=== PATIENT | female | born 1940 | race American Indian/Alaskan Native ===

== ENCOUNTER 2020-11-09 14:00 | Emergency (ER) | payer OTHER ==
--- OUTSIDE RECORDS SUMMARY | 2020-11-09 14:03 | XMS REPORT | Continuity of Care Document ---
:1940 Author Organization [facility] t Address [address] [place] [address] Care Team Providers Name Role Phone Asked, No Pcp Primary Care Physician Unavailable Wili AGUILERA Attending Clinician Therapist, Speech Attending Clinician Unavailable Radiology Attending Clinician Unavailable Jose MUNOZ Attending Clinician Unavailable Jeancarlos AGUILERA, A Attending Clinician Only, Test Attending Clinician Unavailable Doctor Unassigned, Name Attending Clinician Unavailable Pob, Lab Main Attending Clinician Unavailable Jeancarlos AGUILERA, A Admitting Clinician Payers Payer Name Policy Type Policy Effective Date Expiration Date Sour ce Number [facility] [id number] 2020 [facility] 00:00:00 [facility] -[facility] DUAL COMPLETE [id number] O Problems This patient has no known problems. Allergies, Adverse Reactions, Alerts This patient has no known allergies or adverse reactions. Social History Social Habit Start Date Stop Date Quantity Comments Source Tobacco use and 2020-05-18 2020-05-[address] [facility] exposure 00:00:00 00:00:00 Sex Assigned At [address] 1940 [facility] 00:00:00 00:00:00 Smoking Status Start Date Stop Date Source Never smoker [facility] Medications Ordered Filled Start Stop Current Ordering Indication Dosage Frequency Signature Comments Components Source Medication Medication Date Date Medication? Clinician (SIG) Name Name tyrese 2020- No [id number] 40U [facility] Katharine 07-[id number] (BOTOX) 18:30: 21:30 Hospita injection 00 :00 l 40 Units Lumigan Yes [facility] 0.01 % 2- st ophthalmic 00:00: Hospita drops 00 l atenoloL Yes [facility] (TENORMIN) 04-15 st 50 MG 00:00: Hospita tablet 00 l losartan Yes [facility] (COZAAR) 50 - st MG tablet 00:00: Hospita 00 l Procedures Procedure Date / Time Performed Performing Clinician [facility] e AUTOMATED VISUAL FIELD, 2020-05-18 21:13:07 [facility] EXTENDED - OD - RIGHT EYE AUTOMATED VISUAL FIELD, 2020-05-18 21:12:57 [facility] EXTENDED - OD - RIGHT EYE Plan of Care Planned Activity Planned Date Details Comments Source Future Scheduled Test COVID-19 VACCINE (1) [facility] [code = COVID-19 VACCINE (1)] Future Scheduled Test Hepatitis C screening [facility] (procedure) [code = 215524618] Future Scheduled Test SHINGLES VACCINES (#1) [facility] [code = SHINGLES VACCINES (#1)] Future Scheduled Test 65+ PNEUMOCOCCAL [facility] VACCINE (1 of 1 - PPSV23) [code = 65+ PNEUMOCOCCAL VACCINE (1 of 1 - PPSV23)] Future Scheduled Test INFLUENZA VACCINE [code [facility] = INFLUENZA VACCINE] Encounters Start End Encounter Admission Attending Care Care Encounter Source Date/Time Date/Time Type Type Clinicians Facility Department ID 2020-08-01 2020-08-01 Office Wili 1.2.840.1 [id number] [facility] 13:26:07 14:15:23 Visit [facility] [address]28.1.[address] 3.430.2.7 Hospit a .3.779871 l .8 2020-08-01 2020-08-01 Travel 1.2.840.1 1.2.503.256 [id number] [facility] 00:00:00 00:00:[address] 3.430.2.7 0.2.7.3.698 Ho spita .3.422463 084.8 l .8 2020-08-01 2020-08-01 Telephone Wili, 1.2.840.1 [id number] [facility] 00:00:00 00:00:[address] 3.430.2.7 Hospit a .3.250678 l .8 2020-08-01 2020-08-01 Outpatient WILI, [facility] [id number] [address] [place] 00:00:00 00:00:00 [facility] [address] 2020-07-20 2020-07-20 Telephone Wili, 1.2.840.1 [id number] [facility] 00:00:00 00:00:[address] 3.430.2.7 Hospit a .3.092918 l .8 2020-07-13 2020-07-13 Office Wili, 1.2.840.1 [id number] [facility] 12:30:39 13:25:56 Visit [facility] [address]7680.1.[address] 3.430.2.7 Hospit a .3.840323 l .8 2020-07-13 2020-07-13 Travel 1.2.840.1 1.2.558.590 [id number] [facility] 00:00:00 00:00:[address] 3.430.2.7 0.2.7.3.698 Ho spita .3.548695 084.8 l .8 2020-07-13 2020-07-13 Outpatient WILI, [facility] [id number] [address] [place] 00:00:00 00:00:00 [facility] [address] 2020-05-19 2020-05-19 Telephone Wili, 1.2.840.1 [id number] [facility] 00:00:00 00:00:[address] 3.430.2.7 Hospit a .3.309707 l .8 2020-05-18 2020-05-18 Office Wili, 1.2.840.1 [id number] [facility] 13:09:03 15:13:02 Visit [facility] [address]85.1.[address] 3.430.2.7 Hospit a .3.019368 l .8 2020-05-18 2020-05-18 Travel 1.2.840.1 1.2.495.220 [id number] [facility] 00:00:00 00:00:[address] 3.430.2.7 0.2.7.3.698 Ho spita .3.750773 084.8 l .8 2020-05-18 2020-05-18 Outpatient WILI [facility] [id number] [address] [place] 00:00:00 00:00:00 [facility] [address] 2020-03-30 2020-03-30 [facility] 1.2.840.114 [id number] 08:49:38 09:49:38 Visit Derek Yost 350.1.13.10 [place] 4.2.7.2.686 Professio [id number] [address] 2020-03-29 2020-03-29 [facility] Radiology [facility] 1.2.840.114 [id number] 13:00:00 23:59:00 Encounter Ritika 350.1.13.10 [place] 4.2.7.2.686 [place] [id number] [id number] 2020-03-10 2020-03-10 [facility] 1.2.840.114 [id number] 00:00:00 00:00:00 Marry Yost 350.1.13.10 [place] 4.2.7.2.686 Professio [id number] [address] 2020-02-24 2020-02-24 [facility] 1.2.743.080 1530 1918 11:00:00 14:00:00 Encounter Dennys Yost 350.1.13.10 [place] 4.2.7.2.686 Surgical [id number] [place] [address] 2020-02-23 2020-02-23 Laboratory Only, [facility] 1.2.840.114 7 [id number] 11:06:48 11:21:48 Only Test [place] 350.1.13.10 [place] 4.2.7.2.686 [place] [id number] 353 2020-02-23 2020-02-23 Orders Doctor JOANNE 1.2.840.114 [id number] 00:00:00 00:00:00 Only Unassigned, APOLINAR 350.1.13.10 [place] [address].2.7.2.686 [id number] 009 2020-02-03 2020-02-03 [facility] 1.2.230.383 [id number] 08:19:00 13:31:00 Encounter Dennys Yost 350.1.13.10 [place] 4.2.7.2.686 Surgical [id number] [place] [address] 2020-02-02 2020-02-02 Laboratory Only, [facility] 1.2.840.114 7 [id number] 11:00:39 11:15:39 Only Test [place] 350.1.13.10 [place] 4.2.7.2.686 [place] [id number] [facility] 2020-01-29 2020-01-29 Design Inserter Jann, [facility] 1.2.840.114 [id number] 15:22:04 15:37:04 Visit Lab Main [place] 350.1.13.10 [place] 4.2.7.2.686 Professio [id number] [address] 2020-01-29 2020-01-29 Orders Doctor JOANNE 1.2.840.114 [id number] 00:00:00 00:00:00 Only Unassigned, APOLINAR 350.1.13.10 [facility] 4.2.7.2.686 [id number] 009 2019-12-16 2019-12-16 [facility]phone [facility] 1.2.840.114 [id number] 00:00:00 00:00:00 Marry Yost 350.1.13.10 [place] 4.2.7.2.686 Professio [id number] [facility] 145 Building 2019-12-04 2019-12-04 Telephone UZMA Garcia.2.840.114 [id number] 00:00:00 00:00:00 Marry Yost 350.1.13.10 [place] 4.2.7.2.686 Professio [id number] [facility] 145 [facility] Results Test Description Test Time Test Comments Results Result Sour e Comments Automated Visual 2020-05-20 Threshold was [place] dist Field, Extended - 17:50:14 LVC. Strategy was Hospital OD DONALDO. Notes> 25 degree improvement in visual field OD w/lids taped Automated Visual 2020-05-20 Threshold was [place] dist Field, Extended - 17:50:04 LVC. Strategy was Hospital OD DONALDO. Notes> 25 degree improvement in visual field OD w/lids taped
--- NOTE | 2020-11-09 16:16 | RAD REPORT ---
EXAM DESCRIPTION: RAD - Chest Single View - 11/09/2020 3:16 pm CLINICAL HISTORY: COUGH COMPARISON: May 2012 TECHNIQUE: AP portable chest image was obtained 11/09/2020 3:16 pm . FINDINGS: Fibrotic lung pattern is present. Interstitial pattern is slightly more pronounced in the lateral mid left lung field and in the lateral right base. In the acute clinical setting this could b e a mild or early pneumonia. In the current clinical environment COVID-19 pneumonia cannot be exclude d and can be correlated with history testing. Asymmetric fibrosis is unlikely. No failure or volume overload. No suspicious yennifer finding. Heart and vasculature are normal. No measurable pleural effusion and no pneumothorax. No acute bony abnormality seen. No acute aortic findings suspected. IMPRESSION: Patchy lung parenchymal opacification superimposed on mild diffuse chronic lung disease. Minimal or early bilateral pneumonia is suspected. COVID-19 pneumonia etiology cannot be excluded.
--- NOTE | 2020-11-09 18:15 | EDPHYS ---
Physician Documentation [facility] Name: Philip Aceves Age: 80 yrs Sex: Female : 1940 Arrival Date: 11/09/2020 Time: 14:06 Bed Waiting Private MD: ED Physician Luis Saez HPI: 11/09 18:44 This 80 yrs old Other Female presents to ER via Ambulatory with complaints of Cough, kb Fever, Sore Throat. 18:44 The patient or guardian reports cough, flu symptoms. Onset: The symptoms/episode kb began/occurred 5 day(s) ago. Severity of symptoms: At their worst the symptoms were mild, moderate, in the emergency department the symptoms are unchanged. Modifying factors: The symptoms are alleviated by nothing, the symptoms are aggravated by nothing. Associated signs and symptoms: Pertinent positives: fever, Pertinent negatives: chest pain, diarrhea, ear ache, nausea, rhinorrhea, sore throat, vomiting. The patient has not experienced similar symptoms in the past. The patient has not recently seen a physician. Family reports pt has had cough, fever, chills, bodyaches and fatigue for 5 days. . Historical: - Allergies: 14:59 No Known Allergies; ss - PMHx: 14:59 Hypertensive disorder; ss - Immunization history:: Client reports having NOT received the Covid vaccine. - Social history:: Smoking status: Patient denies any tobacco usage or history of. ROS: 18:43 Abdomen/GI: Negative for abdominal pain, nausea, vomiting, diarrhea, and constipation. kb 18:43 Constitutional: Positive for body aches, chills, fatigue, fever, malaise. 18:43 Respiratory: Positive for cough, Negative for dyspnea on exertion, hemoptysis, orthopnea, pleurisy, shortness of breath, sputum production, wheezing. 18:43 All other systems are negative. Exam: 18:43 Constitutional: This is a well developed, well nourished patient who is awake, alert, kb and in no acute distress. Head/Face: Normocephalic, atraumatic. ENT: Moist Mucous membranes Cardiovascular: Regular rate and rhythm with a normal S1 and S2. No gallops, murmurs, or rubs. No pulse deficits. Respiratory: Respirations even and unlabored. No increased work of breathing, no retractions or nasal flaring. Skin: Warm, dry with normal turgor. Normal color. MS/ Extremity: Pulses equal, no cyanosis. Neurovascular intact. Full, normal range of motion. Neuro: Awake and alert, GCS 15, oriented to person, place, time, and situation. Moves all extremities. Normal gait. Psych: Awake, alert, with orientation to person, place and time. Behavior, mood, and affect are within normal limits. Vital Signs: 14:58 BP 121 / 86; Pulse 63; Resp 19; Temp 98.9(TE); Pulse Ox 99% on R/A; Weight 83.91 kg; ss Height 5 ft. 4 in. (162.56 cm); Pain 8/10; 18:14 BP 132 / 76; Pulse 70; Resp 20; Temp 98.5; Pulse Ox 96% ; kb 14:58 Body Mass Index 31.75 (83.91 kg, 162.56 cm) ss MDM: 18:14 Patient medically screened. kb 18:42 Data reviewed: vital signs, nurses notes. Data interpreted: Pulse oximetry: on room air kb is 96 %. Interpretation: normal. Counseling: I had a detailed discussion with the patient and/or guardian regarding: the historical points, exam findings, and any diagnostic results supporting the discharge/admit diagnosis, lab results, radiology results, the need for outpatient follow up, a family practitioner, to return to the emergency department if symptoms worsen or persist or if there are any questions or concerns that arise at home. 11/09 17:19 Order name: SARS-COV-2 RT PCR; Complete Time: 17:22 EDMS 11/09 14:58 Order name: XRAY Chest (1 view); Complete Time: 16:20 ss Administered Medications: No medications were administered Disposition: 18:56 Co-signature as Attending Physician, Luis Saez MD I agree with the assessment and rn plan of care. Attestation: The patient's history, exam findings, diagnostics, and a summary of any interventions or procedures was reviewed in detail with Soifa CORTEZ. Disposition Summary: 11/09/20 18:14 Discharge Ordered Location: Home kb Condition: Stable kb Diagnosis - Coronavirus infection, unspecified kb - Viral pneumonia, unspecified kb Followup: kb - With: Emergency Department - When: As needed - Reason: Worsening of condition Followup: kb - With: Private Physician - When: 2 - 3 days - Reason: Recheck today's complaints, Continuance of care, Re-evaluation by your physician Discharge Instructions: - Discharge Summary Sheet kb - Viral Respiratory Infection, [id number] kb - COVID-19 kb Forms: - Medication Reconciliation Form kb - Thank You Letter kb - Antibiotic Education kb - Prescription Opioid Use kb Prescriptions: - Tessalon Perles 100 mg Oral Capsule - take 1 capsule by ORAL route every 8 hours As needed; 15 capsule; Refills: 0, kb Product Selection Permitted Signatures: Dispatcher [employer] EDSofia Corrigan, CASTING HOUSE LABORER-C CASTING HOUSE LABORER-Ckb Luis Saez MD MD rn Ely Delgado RN RN ss Corrections: (The following items were deleted from the chart) 16:00 14:54 CORONAVIRUS+BRZ ordered. [facility]
--- NOTE | 2020-11-09 18:15 | ER ---
Nurse's Notes [facility] Name: Philip Aceves Age: 80 yrs Sex: Female : 1940 Arrival Date: 11/09/2020 Time: 14:06 Bed Waiting Private MD: Diagnosis: Coronavirus infection, unspecified;Viral pneumonia, unspecified Presentation: 11/09 14:58 Chief complaint: Patient states: cough, body aches, fatigue and fever that began 4 days ss ago. Coronavirus screen: Client presents with at least one sign or symptom that may indicate coronavirus-19. Ebola Screen: Patient denies exposure to infectious person. Patient denies travel to an Ebola-affected area in the 21 days before illness onset. Initial Sepsis Screen: Does the patient meet any 2 criteria? No. Patient's initial sepsis screen is negative. Does the patient have a suspected source of infection? No. Patient's initial sepsis screen is negative. Risk Assessment: Do you want to hurt yourself or someone else? Patient reports no desire to harm self or others. Onset of symptoms was November 05, 2020. 14:58 Method Of Arrival: Ambulatory ss 14:58 Acuity: ABIMAEL 3 ss Historical: - Allergies: 14:59 No Known Allergies; ss - PMHx: 14:59 Hypertensive disorder; ss - Immunization history:: Client reports having NOT received the Covid vaccine. - Social history:: Smoking status: Patient denies any tobacco usage or history of. Vital Signs: 14:58 BP 121 / 86; Pulse 63; Resp 19; Temp 98.9(TE); Pulse Ox 99% on R/A; Weight 83.91 kg; ss Height 5 ft. 4 in. (162.56 cm); Pain 8/10; 18:14 BP 132 / 76; Pulse 70; Resp 20; Temp 98.5; Pulse Ox 96% ; kb 14:58 Body Mass Index 31.75 (83.91 kg, 162.56 cm) ss ED Course: 14:06 Patient arrived in ED. mr 14:59 Triage completed. ss 14:59 Arm band placed on right wrist. ss 15:13 Sofia Dan FNP-C is PHCP. kb 15:13 Luis Saez MD is Attending Physician. kb 15:15 XRAY Chest (1 view) In Process Unspecified. EDMS Administered Medications: No medications were administered Outcome: 18:14 Discharge ordered by . mini 18:23 Patient left the ED. mini Signatures: Dispatcher [employer] EDMS Sofia Dan FNP-C FNP-Ckb Rivera, Mary mr Smirch, Shelby, RN RN ss
[2020-11-09 18:32] VITALS: BP 132/76; TEMP 98.5; O2SAT 96
== END 2020-11-09 18:23 | disposition home or self-care (01) ==
LOC: ER 14:00
DX: U07.1 COVID-19 (principal); J12.9 Viral pneumonia, unspecified; I10 Essential (primary) hypertension
CPT/HCPCS: 71045; 99282; U0003

== ENCOUNTER 2022-04-24 17:35 | Emergency (ER) | payer OTHER ==
--- NOTE | 2022-04-24 19:24 | RAD REPORT ---
EXAM DESCRIPTION: CT - Head Brain Wo Cont - 04/24/2022 7:18 pm CLINICAL HISTORY: dizziness Headache, drowsiness COMPARISON: No comparisons TECHNIQUE: All CT scans are performed using dose optimization technique as appropriate and may inclu de automated exposure control or mA/KV adjustment according to patient size. FINDINGS: No intracranial hemorrhage, hydrocephalus or extra-axial fluid collection.Mild generalized brain atrophy is present with mild periventricular and deep white matter chronic microvascular ische jeff changes.No areas of brain edema or evidence of midline shift. The paranasal sinuses and mastoids are clear. The calvarium is intact. IMPRESSION: No acute intracranial abnormality.
--- NOTE | 2022-04-24 20:01 | RAD REPORT ---
EXAM DESCRIPTION: RAD - Chest Single View - 04/24/2022 7:55 pm CLINICAL HISTORY: dizziness Chest pain. COMPARISON: Chest Single View dated 11/09/2020; CHEST PA AND LAT 2 VIEW dated 06/02/2012 FINDINGS: Portable technique limits examination quality. Mild interstitial pulmonary edema is seen. The heart is mildly in size. No displaced fractures. IMPRESSION: Mild CHF.
[2022-04-24 20:15] LABS: Urine Blood Negative (Negative); Urine Glucose Negative (Negative); Urine Protein Negative (Negative); Urine Specific Gravity <=1.005 (1.005-1.030)
[2022-04-24 20:24] LABS: Absolute Lymphocytes (CBC) 1.9 K/uL (0.7-4.9); Hematocrit 38.6 % (36.0-45.0); MCV 89.4 fL (80-100); MPV 8.2 fL (7.6-11.3); RBC Red Blood Cell Count 4.32 M/uL (3.86-4.86)
[2022-04-24 20:25] LABS: Urine Bacteria None Seen /HPF (<20); Urine RBC <5 /HPF (None Seen)
[2022-04-24 20:27] LABS: Protime INR 1.02
[2022-04-24] MEDS ORDERED: MECLIZINE HCL 12.5 MG TAB ONE (20:34)
[2022-04-24 20:50] LABS: Magnesium 2.4 mg/dL (1.6-2.4); Potassium 4.3 mmol/L (3.5-5.1); Troponin High Sensitivity 7.4 pg/mL (<58.9)
--- NOTE | 2022-04-24 21:28 | ER ---
Nurse's Notes [facility] Name: Bernadine Aceves Age: 81 yrs Sex: Female : 1940 Arrival Date: 04/24/2022 Time: 18:26 Bed 12 Private MD: Sheela Pérez R Diagnosis: Dizziness and giddiness Presentation: 04/24 18:34 Chief complaint: Patient's son or daughter states: unsteady gate with dizziness and vg1 'slight headache' x 2 day; also stated dizziness occurs upon standing. Coronavirus screen: Vaccine status: Patient reports receiving the 2nd dose of the covid vaccine. Client denies travel out of the [place] in the last 14 days. Ebola Screen: Patient negative for fever greater than or equal to 101.5 degrees Fahrenheit, and additional compatible Ebola Virus Disease symptoms Patient denies exposure to infectious person. Initial Sepsis Screen: Does the patient meet any 2 criteria? No. Patient's initial sepsis screen is negative. Does the patient have a suspected source of infection? No. Patient's initial sepsis screen is negative. Risk Assessment: Do you want to hurt yourself or someone else? Patient reports no desire to harm self or others. Onset of symptoms was April 22, 2022. 18:34 Method Of Arrival: Wheelchair vg1 18:34 Acuity: ABIMAEL 3 vg1 Triage Assessment: 18:37 General: Appears comfortable, Behavior is calm, cooperative. Pain: Denies pain. Neuro: vg1 Level of Consciousness is awake, alert, obeys commands, Oriented to person, place, time, situation, Reports dizziness, headache. Respiratory: Airway is patent Respiratory effort is even, unlabored. Historical: - Allergies: 18:37 No Known Allergies; vg1 - Home Meds: 18:37 losartan oral [Active]; Atenolol Oral [Active]; vg1 - PMHx: 18:37 Hypertensive disorder; vg1 - PSHx: 18:37 None; vg1 - Immunization history:: Client reports receiving the 2nd dose of the Covid vaccine. - Social history:: Smoking status: Patient denies any tobacco usage or history of. Screenin:30 [facility] ED Fall Risk Assessment (Adult) History of falling in the last 3 months, mb9 including since admission No falls in past 3 months (0 pts) Confusion or Disorientation No (0 pts) Intoxicated or Sedated No (0 pts) Impaired Gait No (0 pts) Mobility Assist Device Used No (0 pt) Altered Elimination No (0 pt) Score/Fall Risk Level 0 - 2 = Low Risk Oriented to surroundings, Maintained a safe environment, Educated pt \\T\\ family on fall prevention, incl call for assistance when getting out of bed. Abuse screen: Denies threats or abuse. Nutritional screening: No deficits noted. Tuberculosis screening: No symptoms or risk factors identified. Assessment: 19:37 Reassessment: pt brought back to ER room. mb9 20:00 General: Appears in no apparent distress. comfortable, Behavior is calm, cooperative, mb9 appropriate for age. Pain: Complains of pain in head Quality of pain is described as aching. Neuro: Kumar Agitation-Sedation Scale (RASS): 0 - Alert and Calm Level of Consciousness is awake, alert, obeys commands, Oriented to person, place, time, situation, Appropriate for age. Neuro: Reports dizziness, headache. Cardiovascular: Capillary refill < 3 seconds is brisk Patient's skin is warm and dry. Respiratory: Airway is patent Respiratory effort is even, unlabored, Respiratory pattern is regular, symmetrical. GI: Abdomen is round non-distended, Bowel sounds present X 4 quads. Abd is soft and non tender X 4 quads. : No signs and/or symptoms were reported regarding the genitourinary system. EENT: No signs and/or symptoms were reported regarding the EENT system. Derm: Skin is pink, warm \\T\\ dry. Musculoskeletal: Range of motion: intact in all extremities. 20:24 Reassessment: Pt refuses EKG. Pt states "I just had one done at my heavy forger 3-5 mb9 days ago and it was fine. I don't need one now." ANA, Page, notified. Vital Signs: 18:34 BP 180 / 94; Pulse 56; Resp 16; Temp 97.3(TE); Pulse Ox 99% on R/A; Weight 83.91 kg; vg1 Height 5 ft. 4 in. (162.56 cm); Pain 0/10; 18:37 BP 179 / 84; vg1 19:44 BP 160 / 65; Pulse 61; Resp 16; Pulse Ox 100% on R/A; Pain 0/10; mb9 20:45 BP 177 / 60 Supine; Pulse 53; Pulse Ox 100% ; mb9 20:47 BP 157 / 73 Sitting; Pulse 63; Pulse Ox 100% ; mb9 20:49 BP 150 / 79 Standing; Pulse 98; Pulse Ox 97% ; mb9 18:34 Body Mass Index 31.75 (83.91 kg, 162.56 cm) vg1 ED Course: 18:26 Patient arrived in ED. am2 18:26 Sheela Pérez MD is Private Physician. am2 18:37 Triage completed. vg1 18:37 Arm band placed on. vg1 18:45 Greg Duncan PA is PHCP. cp 18:45 Luis Saez MD is Attending Physician. cp 19:19 CT Head Brain wo Cont In Process Unspecified. EDMS 19:40 Call light in reach. Side rails up X 1. Client placed on continuous cardiac and pulse mb9 oximetry monitoring. NIBP monitoring applied. panel monitor on. 19:56 XRAY Chest (1 view) In Process Unspecified. EDMS 20:15 Urine Microscopic Only Sent. rv1 20:15 Basic Metabolic Panel Sent. rv1 20:15 CBC with Diff Sent. rv1 20:15 Magnesium Sent. rv1 20:15 PT-INR Sent. rv1 20:15 Troponin HS Sent. rv1 20:15 Inserted saline lock: 20 gauge in right antecubital area, using aseptic technique. rv1 Blood collected. 20:26 No provider procedures requiring assistance completed. mb9 20:50 Kalli Fernandes RN is Primary Nurse. mb9 21:28 Fabricio Mackey MD is Referral Physician. cp 21:38 IV discontinued, intact, bleeding controlled, No redness/swelling at site. Pressure mb9 dressing applied. Administered Medications: 20:37 Drug: Meclizine 25 mg Route: PO; mb9 20:52 Follow up: Response: No adverse reaction mb9 Medication: 20:26 VIS not applicable for this client. mb9 Outcome: 21:28 Discharge ordered by . cp 21:39 Discharged to home via wheelchair. mb9 21:39 Condition: stable 21:39 Discharge instructions given to patient, Instructed on discharge instructions, follow up and referral plans. Demonstrated understanding of instructions, follow-up care, medications, Prescriptions given X 1. 21:39 Patient left the ED. mb9 Signatures: Dispatcher [employer] EDMS Greg Duncan PA PA cp Moreno, Amanda am2 Garcia, Victoria RN RN vg1 Kalli Fernandes RN RN mb9 Shaylee Matute 1
--- NOTE | 2022-04-24 21:28 | EDPHYS ---
Physician Documentation [facility] Name: Bernadine Aceves Age: 81 yrs Sex: Female : 1940 Arrival Date: 04/24/2022 Time: 18:26 Bed 12 Private MD: Sheela Pérez R ED Physician Luis Saez HPI: 04/24 19:00 This 81 yrs old Female presents to ER via Wheelchair with complaints of unstable on cp feet. 19:00 The patient presents with dizziness, feeling off balance. Onset: The symptoms/episode cp began/occurred 2 day(s) ago. 19:00 Associated signs and symptoms: Pertinent positives: headache, Pertinent negatives: cp abdominal pain, chest pain, confusion, diaphoresis, focal weakness, palpitations, vomiting. Severity of symptoms: in the emergency department the symptoms are unchanged despite home interventions. Patient's baseline: Neuro: alert and fully oriented, Motor: no deficits, Ambulation: walks without assistance, Speech: normal. 19:00 Son acts as per diem interpreter. Reports patient c/o dizziness worse when going from sitting to cp standing. Denies syncope and/or near syncope. Reports patient had recent cardiology appt with no issues. Historical: - Allergies: 18:37 No Known Allergies; vg1 - Home Meds: 18:37 losartan oral [Active]; Atenolol Oral [Active]; vg1 - PMHx: 18:37 Hypertensive disorder; vg1 - PSHx: 18:37 None; vg1 - Immunization history:: Client reports receiving the 2nd dose of the Covid vaccine. - Social history:: Smoking status: Patient denies any tobacco usage or history of. ROS: 19:05 Constitutional: Negative for body aches, chills, fever, poor PO intake. cp 19:05 Eyes: Negative for injury, pain, redness, and discharge. cp 19:05 ENT: Negative for drainage from ear(s), ear pain, sore throat, difficulty swallowing, difficulty handling secretions. 19:05 Cardiovascular: Negative for chest pain, edema, palpitations. 19:05 Respiratory: Negative for cough, shortness of breath, wheezing. 19:05 Abdomen/GI: Negative for abdominal pain, nausea, vomiting, and diarrhea. 19:05 : Negative for urinary symptoms. 19:05 Neuro: Positive for dizziness, headache, Negative for altered mental status, numbness, syncope, near syncope, weakness. 19:05 All other systems are negative. Vital Signs: 18:34 BP 180 / 94; Pulse 56; Resp 16; Temp 97.3(TE); Pulse Ox 99% on R/A; Weight 83.91 kg; vg1 Height 5 ft. 4 in. (162.56 cm); Pain 0/10; 18:37 BP 179 / 84; vg1 19:44 BP 160 / 65; Pulse 61; Resp 16; Pulse Ox 100% on R/A; Pain 0/10; mb9 20:45 BP 177 / 60 Supine; Pulse 53; Pulse Ox 100% ; mb9 20:47 BP 157 / 73 Sitting; Pulse 63; Pulse Ox 100% ; mb9 20:49 BP 150 / 79 Standing; Pulse 98; Pulse Ox 97% ; mb9 18:34 Body Mass Index 31.75 (83.91 kg, 162.56 cm) vg1 MDM: 18:53 Patient medically screened. 21:26 Data reviewed: vital signs, nurses notes, lab test result(s), radiologic studies, CT cp scan, plain films. Consideration of Admission/Observation Escalation of care including admission/observation considered. ED course: Patient refused EKG due to having a recent EKG performed at [employer] office. Discussed observation for dizziness, but patient requesting discharge to home. Recommend use of walker. 04/24 19:39 Order name: Basic Metabolic Panel; Complete Time: 21:07 cp 04/24 21:07 Interpretation: Normal except: GFR 89; CA 10.3. cp 04/24 19:39 Order name: CBC with Diff; Complete Time: 20:39 cp 04/24 20:39 Interpretation: Reviewed. 04/24 19:39 Order name: Magnesium; Complete Time: 21:07 cp 04/24 19:39 Order name: PT-INR; Complete Time: 20:39 cp 04/24 19:39 Order name: Troponin HS; Complete Time: 21:07 cp 04/24 21:08 Interpretation: Reviewed. 04/24 19:39 Order name: Urine Microscopic Only; Complete Time: 20:39 cp 04/24 20:39 Interpretation: Reviewed. cp 04/24 18:44 Order name: CT Head Brain wo Cont; Complete Time: 20:21 rn 04/24 19:39 Order name: Orthostatics; Complete Time: 20:52 cp 04/24 19:39 Order name: XRAY Chest (1 view); Complete Time: 20:21 cp 04/24 19:39 Order name: Cardiac monitoring; Complete Time: 19:44 cp 04/24 20:16 Order name: Urine Dipstick-Ancillary; Complete Time: 20:21 EDMS 04/24 19:39 Order name: IV Saline Lock; Complete Time: 20:15 cp 04/24 19:39 Order name: Labs collected and sent; Complete Time: 20:15 cp 04/24 19:39 Order name: O2 Per Protocol; Complete Time: 19:44 cp 04/24 19:39 Order name: O2 Sat Monitoring; Complete Time: 19:44 cp 04/24 19:39 Order name: Urine Dipstick-Ancillary (obtain specimen); Complete Time: 20:15 cp Administered Medications: 20:37 Drug: Meclizine 25 mg Route: PO; mb9 20:52 Follow up: Response: No adverse reaction mb9 Disposition Summary: 04/24/22 21:28 Discharge Ordered Location: Home cp Problem: new cp Symptoms: have improved cp Condition: Stable cp Diagnosis - Dizziness and giddiness cp Followup: cp - With: Fabricio Mackey MD - When: 2 - 3 days - Reason: Recheck today's complaints Discharge Instructions: - Discharge Summary Sheet cp - Dizziness cp Forms: - Medication Reconciliation Form cp - Thank You Letter cp - Antibiotic Education cp - Prescription Opioid Use cp Prescriptions: - Meclizine 25 mg Oral Tablet - take 1 tablet by ORAL route every 8 hours As needed; 30 tablet; Refills: 0, cp Product Selection Permitted Signatures: Dispatcher [employer] EDGA Greg Duncan PA PA cp Garcia, Victoria RN RN vg1 Kalli Fernandes RN RN mb9 Corrections: (The following items were deleted from the chart) : 19:39 EKG - Nurse/Tech ordered. cp mb9
[2022-04-24 21:55] VITALS: TEMP 97.3
[2022-04-24 22:10] VITALS: BP 150/79; O2SAT 97
== END 2022-04-24 21:39 | disposition home or self-care (01) ==
LOC: ER 17:35
DX: R42 Dizziness and giddiness (principal); R51.9 Headache, unspecified; I10 Essential (primary) hypertension
CPT/HCPCS: 85025; 80048; 36415; 83735; 85610; 84484; 70450; 71045; J8597; 81003; 81015

== ENCOUNTER 2024-04-20 09:41 | Inpatient (IN) | payer OTHER ==
--- OUTSIDE RECORDS SUMMARY | 2024-04-20 09:44 | XMS REPORT | Continuity of Care Document ---
Author Name Unknown Address [address] [place] [address] [facility] thconnect Address [address] [place] [address] Care Team Providers Care Quality Control Tech Name Role Phone Asked, No Pcp Primary Care Physician DENNYS Thomas Attending Clinician Sofía Lehman Unassigned, Farson Attending Clinician U cally Delgadillo, Derek Speech Attending Clinician Don Armstrong PHD, Emilee Steiner Attending Clinician [phone] Radiology Attending Clinician Unavailable RADIOLOGY Attending Clinician Unavailable Marry Draper Attending Clinician Dennys Yee MD Attending Clinician [phone] Only, Adc Test Attending Clinician Unavailable Pob, Adc Lab Main Attending Clinician DENNYS Claudio Admitting Clinician Dennys Thomas MD Admitting Clinician [phone] Payers Payer Name Policy Type Policy Number Effective Date Expirati on Date Source [facility] DUAL COMPLETE HMO [id number] 2017 00:00:00 [facility] [id number] 00:00:00 Problems Condition Name Condition Details Condition Category Status Onset Date Resolution Date Last Treatment Date Treating Clinician Comments Source Elevated blood pressure Elevated blood pressure Disease Active 08-05 00:00: 00 [facility] Allergies, Adverse Reactions, Alerts Allergy Name Allergy Type Status Severity Reaction(s) Onset Date Inactive Date Treating Clinician Comments Source NO KNOWN ALLERGIE S Drug Class Active [facility] Social History Social Habit Start Date Stop Date Quantity Comments Source Exposure to SARS-CoV-2 (event) Not sure [facility] ASSERTION Possible Brian Mccloud Sexual orientation H libia Rogers History of Social function 2020-05-18 00:00:00 2020-05-18 00:00:00 Brian Mccloud Tobacco use and exposure 2020-02-25 00:00:00 2020-02-25 00:00:00 Never used [facility] Alcohol intake 2020-02-25 00:00:00 2020-02-25 00:00:00 Current non-drinker of alcohol (finding) [facility] Sex assigned at 1940 00:00:00 1940 00:00:00 Brian Mccloud Smoking Status Start Date Stop Date Source Never smoked tobacco Brian Mccloud Medications Ordered Medication Name Filled Medication Name Start Date Stop Date Current Medication? Ordering Clinician Indication Dosage Frequency Signature (SIG) Comments Components Source Lumigan 0.01 % ophthalmic drops 04-25 00:00: 00 Yes [facility] atenoloL (TENORMIN) 50 MG tablet 04-15 00:00: 00 Yes [facility] losartan (COZAAR) 50 MG tablet 04-15 00:00: 00 Yes [facility] lact[facility]ers IV infusion 1,000 mL 2019-03 20:15: 00 Yes 1000mL at 75 mL/hr, 1,000 mL, IV Infusion, CONTINUOUS , Starting Sat02/24/20 at 1415, Until Discontinu ed, Routine, PACU [facility] multivitami n tablet 2019-03 20:10: 47 Yes 1{tbl} Take 1 Tab by mouth daily. [facility] atenoloL 50 mg tablet 2019-03 20:10: 47 Yes 50mg Take 50 mg by mouth daily. [facility] neomycin-po lymyxin-dex amethasone (MAXITROL) 3.5 mg/g-10,000 unit/g-0.1 % ophthalmic ointment 2019-03 19:21: 00 Yes PRN, Starting Sat02/24/20 at 1321, Until Discontinu ed, Routine, [facility]op [facility] gentamicin injection 2019-03 19:20: 00 Yes PRN, Starting Sat02/24/20 at 1320, Until Discontinu ed, JEANNE, Intra-op [facility] dexamethaso ne (DECADRON PHOSPHATE) injection 2019-03 19:20: 00 Yes PRN, Starting Sat02/24/20 at 1320, Until Discontinu ed, Routine, Intra-op [facility] ceFAZolin (ANCEF) injection 2019-03 19:20: 00 Yes PRN, Starting Sat02/24/20 at 1320, Until Discontinu ed, JEANNE, Intra-op [facility] water for irrigation irrigation solution 2019-03 19:19: 00 Yes PRN, Starting Sat02/24/20 at 1319, Until Discontinu ed, Routine, Intra-op [facility] sodium chloride (NS) injection 2019-03 19:18: 00 Yes PRN, Starting Sat02/24/20 at 1318, Until Discontinu ed, Routine, Intra-op [facility] EPINEPHrine 1:1,000 (1 mg/mL) (ADRENALIN) injection 2019-03 19:16: 00 Yes PRN, Starting Sat02/24/20 at 1316, Until Discontinu ed, Routine, Intra-op [facility] DUOVISC (DUOVISC VISCO ELASTIC) 3 %-4 %(0.5 mL) 1 % (0.55 mL) intraocular injection 2019-03 19:16: 00 Yes PRN, Starting Sat02/24/20 at 1316, Until Discontinu ed, Routine, Intra-op [facility] carbachoL (MIOSTAT) 0.01 % intraocular injection 2019-03 19:15: 00 Yes PRN, Starting Sat02/24/20 at 1315, Until Discontinu ed, Routine, Intra-op [facility] balanced salt irrig soln comb1 (BSS PLUS) ophthalmic solution 500 mL bag 2019-03 19:14: 00 Yes PRN, Starting Sat02/24/20 at 1314, Until Discontinu ed, Routine, Intra-op [facility] Hyaluronida se, Human Recomb. (HYLENEX) injection 2019-03 19:01: 00 Yes PRN, Starting Sat02/24/20 at 1301, Until Discontinu ed, Routine, Intra-op [facility] eye block syringe 11 mL 2019-03 19:01: 00 Yes PRN, Starting Sat02/24/20 at 1301, Until Discontinu ed, Intra-op [facility] mydriatic #5 ophthalmic solution 0.5 mL syringe 2019-03 17:15: 00 02-23 17:20 :00 No .5mL 0.5 mL, Left Eye, ONCE, 1 dose, Sat02/24/20 at 1115, Routine [facility] lactated ringers IV infusion 1,000 mL 2019-03 17:15: 00 02-23 17:20 :00 No 1000mL at 42 mL/hr, 1,000 mL, IV Infusion, ONCE, 1 dose, Sat02/24/20 at 1115, Routine, DSU Pre-op [facility] multivitami n tablet 2019-03 14:10: 47 Yes 1{tbl} Take 1 Tab by mouth daily. [facility] atenoloL 50 mg tablet 2019-03 14:10: 47 Yes 50mg Take 50 mg by mouth daily. [facility] multivitami n tablet 2019-03 19:44: 22 Yes 1{tbl} Take 1 Tab by mouth daily. [facility] atenoloL 50 mg tablet 2019-03 19:44: 22 Yes 50mg Take 50 mg by mouth daily. [facility] neomycin-po lymyxin-dex amethasone (MAXITROL) 3.5 mg/g-10,000 unit/g-0.1 % ophthalmic ointment 2019-03 18:35: 00 Yes PRN, Starting Sat02/03/20 at 1235, Until Discontinu ed, Routine, Intra-op [facility] sodium chloride (NS) injection 2019-03 18:34: 00 Yes PRN, Starting Sat02/03/20 at 1234, Until Discontinu ed, Routine, Intra-op [facility] gentamicin injection 2019-03 18:34: 00 Yes PRN, Starting Sat02/03/20 at 1234, Until Discontinu ed, JEANNE, Intra-op [facility] water for irrigation irrigation solution 2019-03 18:33: 00 Yes PRN, Starting Sat02/03/20 at 1233, Until Discontinu ed, Routine, Intra-op [facility] Hyaluronida se, Human Recomb. (HYLENEX) injection 2019-03 18:11: 00 Yes PRN, Starting Sat02/03/20 at 1211, Until Discontinu ed, Routine, Intra-op [facility] eye block syringe 11 mL 2019-03 18:11: 00 Yes PRN, Starting Sat02/03/20 at 1211, Until Discontinu ed, Intra-op [facility] EPINEPHrine 1:1,000 (1 mg/mL) (ADRENALIN) injection 2019-03 15:05: 00 Yes PRN, Starting Sat02/03/20 at 0905, Until Discontinu ed, Routine, Intra-op [facility] DUOVISC (DUOVISC VISCO ELASTIC) 3 %-4 %(0.5 mL) 1 % (0.55 mL) intraocular injection 2019-03 15:05: 00 Yes PRN, Starting Sat02/03/20 at 0905, Until Discontinu ed, Routine, Intra-op [facility] dexamethaso ne (DECADRON PHOSPHATE) injection 2019-03 15:04: 00 Yes PRN, Starting Sat02/03/20 at 0904, Until Discontinu ed, Routine, Intra-op [facility] ceFAZolin (ANCEF) injection 2019-03 15:04: 00 Yes PRN, Starting Sat02/03/20 at 0904, Until Discontinu ed, JEANNE, Intra-op [facility] carbachoL (MIOSTAT) 0.01 % intraocular injection 2019-03 15:04: 00 Yes PRN, Starting Sat02/03/20 at 0904, Until Discontinu ed, Routine, Intra-op Univers [facility] balanced salt irrig soln comb1 (BSS PLUS) ophthalmic solution 500 mL bag 2019-03 15:04: 00 Yes PRN, Starting Sat02/03/20 at 0904, Until Discontinu ed, Routine, Intra-op Univers [facility] mydriatic #5 ophthalmic solution 0.5 mL syringe 2019-03 14:30: 00 02-02 14:51 :00 No .5mL 0.5 mL, Right Eye, ONCE, 1 dose, Sat02/03/20 at 0830, Routine, DSU Pre-op [facility] lactated ringers IV infusion 1,000 mL 2019-03 14:30: 00 02-02 14:51 :00 No 1000mL at 42 mL/hr, 1,000 mL, IV Infusion, ONCE, 1 dose, Sat02/03/20 at 0830, Routine, DSU Pre-op [facility] atenoloL 50 mg tablet 2019-03 16:02: 56 Yes 50mg Take 50 mg by mouth daily. [facility] multivitami n tablet 2013--14 17:12: 33 Yes 1{tbl} Take 1 Tab by mouth daily. [facility] Vital Signs Vital Name Observation Time Observation Value Comments S ource Oxygen saturation in Arterial blood by Pulse oximetry 2020-02-24 19:42:00 95 /min [facility] Systolic blood pressure 2020-02-24 19:42:00 159 mm[Hg] [facility] Diastolic blood pressure 2020-02-24 19:42:00 72 mm[Hg] [facility] Heart rate 2020-02-24 19:42:00 52 /min [facility] Respiratory rate 2020-02-24 19:42:00 18 /min [facility] Body temperature 2020-02-24 19:28:00 36.78 Diandra [facility] Body height 2020-02-22 20:00:00 154.9 cm Univ [facility] Body weight 2020-02-22 20:00:00 87.091 kg Univ [facility] BMI 2020-02-22 20:00:00 36.28 kg/m2 [facility] Oxygen saturation in Arterial blood by Pulse oximetry 2020-02-24 19:42:00 95 /min [facility] Systolic blood pressure 2020-02-24 19:42:00 159 mm[Hg] [facility] Diastolic blood pressure 2020-02-24 19:42:00 72 mm[Hg] [facility] Heart rate 2020-02-24 19:42:00 52 /min [facility] Respiratory rate 2020-02-24 19:42:00 18 /min [facility] Body temperature 2020-02-24 19:28:00 36.78 Diandra [facility] Body height 2020-02-22 20:00:00 154.9 cm Univ [facility] Body weight 2020-02-22 20:00:00 87.091 kg Univ [facility] BMI 2020-02-22 20:00:00 36.28 kg/m2 [facility] Systolic blood pressure 2020-02-03 19:05:00 168 mm[Hg] [facility] Diastolic blood pressure 2020-02-03 19:05:00 82 mm[Hg] [facility] Heart rate 2020-02-03 19:05:00 53 /min [facility] Respiratory rate 2020-02-03 19:05:00 18 /min [facility] Oxygen saturation in Arterial blood by Pulse oximetry 2020-02-03 19:05:00 96 /min [facility] Body temperature 2020-02-03 19:00:00 36.67 Diandra [facility] Body height 2020-01-19 19:30:00 153 [facility] 2020-01-19 19:30:00 84.5 kg [facility] BMI 2020-01-19 19:30:00 36.10 kg/m2 [facility] Systolic blood pressure 2020-02-03 19:05:00 168 mm[Hg] [facility] Diastolic blood pressure 2020-02-03 19:05:00 82 mm[Hg] [facility] Heart rate 2020-02-03 19:05:00 53 /min [facility] Respiratory rate 2020-02-03 19:05:00 18 /min [facility] Oxygen saturation in Arterial blood by Pulse oximetry 2020-02-03 19:05:00 96 /min [facility] Body temperature 2020-02-03 19:00:00 36.67 Diandra [facility] Body height 2020-01-19 19:30:00 153 cm [facility] Body weight 2020-01-19 19:30:00 84.5 kg [facility] BMI 2020-01-19 19:30:00 36.10 kg/m2 [facility] Procedures Procedure Date / Time Performed Performing Clinicia n Source REFERRAL- REQUEST/RESPONSE 2022-01-16 05:01:00 Doctor Unassigned, Farson [facility] [place] MODIFIED BARIUM SWALLOW 2020-03-29 19:38:53 Requisition, Paper [facility] ASSIGNMENT OF BENEFITS 2020-02-23 17:07:30 Docto r Unassigned, Farson [facility] ASSIGNMENT OF BENEFITS 2020-01-29 21:22:42 Docto r Unassigned, Farson [facility] Encounters Start Date/Time End Date/Time Encounter Type Admission Type Attending Clinicians Care Facility Care Department Encounter ID Source 2021-01-21 07:38:04 Outpatient DENNYS [facility]RI[facility] MYLES [id number] [facility] 2021-01-21 02:06:26 Outpatient DENNYS [facility] [id number] [facility] 2022-01-16 00:00:00 2022-01-16 00:00:00 Orders Only Doctor Unassigned, Farson [facility] 1.2.840.114 350.1.13.10 4.2.7.2.686 [id number] [facility] 2020-03-30 08:49:38 2020-03-30 09:49:38 Ancillary Visit Therapist, Adc Speech [facility] 1.2.840.114 350.1.13.10 4.2.7.2.686 [id number] 2020-03-30 08:49:38 2020-03-30 09:49:38 Ancillary Visit Therapist, Adc Speech Emilee Armstrong [facility] 1.2.840.114 350.1.13.10 4.2.7.2.686 [id number] [facility] 2020-03-29 13:00:00 2020-03-29 23:59:00 Hospital Encounter Radiology [facility] 1.2.840.114 350.1.13.10 4.2.7.2.686 [id number] 2020-03-29 13:00:00 2020-03-29 23:59:00 Hospital Encounter Radiology [facility] 1.2.840.114 350.1.13.10 4.2.7.2.686 [id number] [facility] 2020-03-29 00:00:00 2020-03-29 00:00:00 Outpatient R RADIOLOGY [facility] [id number] [facility] 2020-03-10 00:00:00 2020-03-10 00:00:00 Telephone Urszula Garciandra [facility] 1.2.840.114 350.1.13.10 4.2.7.2.686 [id number] 2020-03-10 00:00:00 2020-03-10 00:00:00 Telephone Marry Garcia [facility] 1.2.840.114 350.1.13.10 4.2.7.2.686 [id number] [facility] 2020-02-24 11:00:00 2020-02-24 14:00:00 Hospital Encounter [facility]ennys [facility] 1.2.840.114 350.1.13.10 4.2.7.2.686 [id number] 2020-02-24 11:00:00 2020-02-24 14:00:00 Hospital Encounter Dennys Roman [facility] 1.2.840.114 350.1.13.10 4.2.7.2.686 [id number] [facility] 2020-02-23 11:06:48 2020-02-23 11:21:48 Laboratory Only Only, Adc Test Dennys Roman [facility] 1.2.840.114 350.1.13.10 4.2.7.2.686 [id number] [facility] 2020-02-23 11:06:48 2020-02-23 11:21:48 Laboratory Only Only, Adc Test [facility] 1.2.840.114 350.1.13.10 4.2.7.2.686 [id number] 2020-02-23 11:00:00 2020-02-23 11:00:00 Outpatient R DENNYS ROMAN [facility] [id number] [facility] 2020-02-23 00:00:00 2020-02-23 00:00:00 Orders Only Doctor Unassigned, Farson [facility] 1.2.840.114 350.1.13.10 4.2.7.2.686 [id number] [facility] 2020-02-23 00:00:00 2020-02-23 00:00:00 Orders Only Doctor Unassigned, Farson [facility] 1.2.840.114 350.1.13.10 4.2.7.2.686 [id number] 2020-02-03 08:19:00 2020-02-03 13:31:00 Hospital Encounter Dennys Roman [facility] 1.2.840.114 350.1.13.10 4.2.7.2.686 [id number] [facility] 2020-02-03 08:19:00 2020-02-03 13:31:00 Hospital Encounter Dennys Roman [facility] 1.2.840.114 350.1.13.10 4.2.7.2.686 [id number] 2020-02-02 11:00:39 2020-02-02 11:15:39 Laboratory Only Only, Adc Test Dennys Roman [facility] 1.2.840.114 350.1.13.10 4.2.7.2.686 [id number] [facility] 2020-02-02 11:00:39 2020-02-02 11:15:39 Laboratory Only Only, Adc Test [facility] 1.2.840.114 350.1.13.10 4.2.7.2.686 [id number] 2020-02-02 11:00:00 2020-02-02 11:00:00 Outpatient R DENNYS ROMAN [facility] [id number] [facility] 2020-01-29 15:45:00 2020-01-29 15:45:00 Outpatient R [facility] [id number] [facility] 2020-01-29 15:22:04 2020-01-29 15:37:04 Care Analyst Visit Pob, Adc Lab Main Dennys Roman [facility] Building 1.2.840.114 350.1.13.10 4.2.7.2.686 [id number] [facility] 2020-01-29 15:22:04 2020-01-29 15:37:04 Care Analyst Visit Pogilbert, Adc Lab Main [facility] Building 1.2.840.114 350.1.13.10 4.2.7.2.686 [id number] 2020-01-29 00:00:00 2020-01-29 00:00:00 Orders Only Doctor Unassigned, Farson [facility] 1.2.840.114 350.1.13.10 4.2.7.2.686 [id number] [facility] 2020-01-29 00:00:00 2020-01-29 00:00:00 Orders Only Doctor Unassigned, Farson [facility] 1.2.840.114 350.1.13.10 4.2.7.2.686 [id number] 2019-12-16 00:00:00 2019-12-16 00:00:00 Telephone Marry Garcia [facility] 1.2.840.114 350.1.13.10 4.2.7.2.686 [id number] [facility] 2019-12-16 00:00:00 2019-12-16 00:00:00 [facility] 1.2.840.114 350.1.13.10 4.2.7.2.686 [id number] 2019-12-04 00:00:00 2019-12-04 00:00:00 [facility] 1.2.840.114 350.1.13.10 4.2.7.2.686 [id number] [facility] 2019-12-04 00:00:00 2019-12-04 00:00:00 Telephone Marry Garcia [facility] 1.2.840.114 350.1.13.10 4.2.7.2.686 [id number] Results Test Description Test Time Test Comments Results Resul t Comments Source [place] MODIFIED BARIUM SWALLOW 5 19:42:07 HISTORY: ?Choking with food/water. TECHNIQUE: Swallowing function was evaluated with the patient sittingupright in chair, using C-arm fluoroscopy, in the presence of speechtherapist. Swallowing function was evaluated using thin barium, thickbarium, barium mixed with pudding, piece of val cracker. FINDINGS: Swallowing function appeared normal. Patient was able to formbolus of food, initiation of swallowing without any significant difficultyand the food material as well as barium flowed through the cervicalesophagus without any obstruction or aspiration. CONCLUSIONS: Normal dysphagiogram study. [facility], Radiant Results Inft User - 03/29/2020 1:43 PM CSTHISTORY: Choking with food/water.TECHNIQUE: Swallowing function was evaluated with the patient sittingupright in chair, using C-arm fluoroscopy, in the presence of speechtherapist. Swallowing function was evaluated using thin barium, thickbarium, barium mixed with pudding, piece of val cracker.FINDINGS: Swallowing function appeared normal. Patient was able to formbolus of food, initiation of swallowing without any significant difficultyand the food material as well as barium flowed through the cervicalesophagus without any obstruction or aspiration. CONCLUSIONS: Normal dysphagiogram study. [facility]
--- NOTE | 2024-04-20 10:14 | RAD REPORT ---
EXAMINATION: ONE VIEW CHEST XR CLINICAL INDICATION: COUGH TECHNIQUE: Frontal chest projection is submitted. Examination is limited by patient positioning and t echnique. COMPARISON: 04/24/2022 FINDINGS: Mild interstitial pulmonary edema suspected. The heart is mildly to moderately enlarged. Aortic ather osclerosis. No displaced fractures identified. IMPRESSION: Mild CHF.
[2024-04-20 10:35] LABS: Absolute Basophils 0.1 K/uL (0-0.5); Absolute Eosinophils 0.1 K/uL (0-0.5); Absolute Lymphocytes (CBC) 1.3 K/uL (0.7-4.9); Absolute Monocytes 0.2 K/uL (0.1-1.3); Absolute Neutrophil 5.5 K/uL (1.8-8.0); Basophils % 0.7 % (0-1.3); Eosinophils % 1.5 % (0-4.4); Hematocrit 35.3 % (36.0-45.0); Hemoglobin 11.9 g/dL (12.0-15.0); Lymphocytes % 18.1 % (15.3-44.8); MCH 30.2 pg (27.0-35.0); MCHC 33.7 g/dL (32.0-36.0); MCV 89.8 fL (80-100); MPV 8.2 fL (7.6-11.3); Monocytes % 2.4 % (3.3-12.3); Neutrophils % 77.3 % (41.7-73.7); Nucleated Red Blood Cells % 0.1 % (0-0); Platelets 263 thou/uL (152-406); RBC Red Blood Cell Count 3.93 M/uL (3.86-4.86); Red Cell Distribution Width 13.3 % (12.1-15.2)
[2024-04-20 10:39] LABS: PT Prothrombin Time 11.6 SECONDS (9.4-12.5); Protime INR 1.11
[2024-04-20 10:52] LABS: Albumin/Globulin Ratio 0.8 (1.1-1.8); Anion Gap 11.7 mEq/L (5.0-15.0); Bilirubin Direct 0.2 mg/dL (0-0.2); Bilirubin Indirect, Calculated 0.3 mg/dL (0.2-0.8); Bilirubin Total 0.5 mg/dL (0.2-1.0); Globulin 3.6 g/dL (2.3-3.5); Magnesium 1.8 mg/dL (1.6-2.4); Potassium 3.7 mEq/L (3.5-5.1); Protein, Total 6.6 g/dL (6.4-8.2)
[2024-04-20 10:55] LABS: Troponin High Sensitivity 122.1 pg/mL (<58.9)
[2024-04-20] MEDS ORDERED: ENOXAPARIN 100 MG/ML SYR SQ ONE (11:10)
[2024-04-20] MEDS ORDERED: ASPIRIN 81 MG CHEWABLE TABLET ONE (11:10)
[2024-04-20] MEDS ORDERED: ONDANSETRON 4 MG/2 ML VIAL ONE (11:10)
[2024-04-20] MEDS ORDERED: NA CHLORIDE 0.9% 500 ML ONE (11:11)
[2024-04-20] MEDS ORDERED: Magnesium Sulfate 2gm IVPB 2 G/50 ML BAG IV ONE (11:11)
[2024-04-20] MEDS ORDERED: METOPROLOL XL 50 MG TAB PO ONE (11:11)
[2024-04-20] MEDS ORDERED: FAMOTIDINE 20 MG/2 ML VIAL IV ONE (11:11)
--- NOTE | 2024-04-20 11:44 | ER ---
Nurse's Notes [facility] Name: Bernadine Aceves Age: 83 yrs Sex: Female : 1940 Arrival Date: 04/20/2024 Time: 09:41 Bed 19 Private MD: Diagnosis: Chest pain, unspecified;Persistent atrial fibrillation-with RVR;Abnormal levels of other serum enzymes-TROPONIN ELEVATED;Non ST elevation GA Presentation: 04/20 10:05 Chief complaint: Patient's son or daughter states: chest discomfort that began this ss morning. Coronavirus screen: Client denies travel out of the [place] in the last 14 days. Ebola Screen: Patient denies exposure to infectious person. Patient denies travel to an Ebola-affected area in the 21 days before illness onset. Initial Sepsis Screen: Does the patient meet any 2 criteria? HR > 90 bpm. No. Patient's initial sepsis screen is negative. Does the patient have a suspected source of infection? No. Patient's initial sepsis screen is negative. Risk Assessment: Do you want to hurt yourself or someone else? Patient reports no desire to harm self or others. Onset of symptoms was April 20, 2024. 10:05 Method Of Arrival: Ambulatory ss 10:05 Acuity: ABIMAEL 2 ss Triage Assessment: 12:22 General: Appears in no apparent distress. kj2 Historical: - Allergies: 10:20 No Known Allergies; ss - PMHx: 10:20 Hypertensive disorder; high cholesterol; ss - Immunization history:: Adult Immunizations up to date. - Infectious Disease History:: Denies. - Social history:: Smoking status: Patient denies any tobacco usage or history of. - Family history:: not pertinent. Screenin:15 [facility] ED Fall Risk Assessment (Adult) History of falling in the last 3 months, kj2 including since admission No falls in past 3 months (0 pts) Confusion or Disorientation No (0 pts) Intoxicated or Sedated No (0 pts) Impaired Gait No (0 pts) Mobility Assist Device Used No (0 pt) Altered Elimination No (0 pt) Score/Fall Risk Level 0 - 2 = Low Risk Maintained a safe environment, Hourly rounding (assess needs \T\ fall precautionary measures) done. Abuse screen: Denies threats or abuse. Denies injuries from another. Nutritional screening: No deficits noted. Tuberculosis screening: No symptoms or risk factors identified. Assessment: 09:50 Reassessment: called pt to triage. Unable to locate patient. Called XRAY. Pt in XRAY at this time and states they will bring pt back to room 19 as requested by triage nurse. 10:15 Pain: Pain does not radiate. Pain began 2 hours ago. kj2 11:00 Reassessment: Patient appears in no apparent distress at this time. Patient and/or kj2 family updated on plan of care and expected duration. Pain level reassessed. Patient is alert, oriented x 3, equal unlabored respirations, skin warm/dry/pink. 11:50 Reassessment: Patient appears in no apparent distress at this time. Patient and/or kj2 family updated on plan of care and expected duration. Pain level reassessed. Patient is alert, oriented x 3, equal unlabored respirations, skin warm/dry/pink. does not need to urinate. 12:14 Reassessment: repeat ekg performed. kj2 12:21 Reassessment: RN notified of low pulse. kj2 13:23 Reassessment: Patient appears in no apparent distress at this time. Patient and/or kj2 family updated on plan of care and expected duration. Pain level reassessed. Patient is alert, oriented x 3, equal unlabored respirations, skin warm/dry/pink. Vital Signs: 10:15 BP 105 / 79; Pulse 120; Temp 97.8; Pulse Ox 98% on R/A; Weight 88.45 kg; Height 5 ft. 1 ss in. ; Pain 8/10; 10:15 Resp 16; ss 11:40 BP 97 / 62; Pulse 48; Resp 18; Temp 97.9; Pulse Ox 98% on R/A; kj2 12:20 BP 128 / 67; Pulse 46; Resp 18; Pulse Ox 97% on R/A; kj2 13:24 BP 131 / 63; Pulse 51; Resp 20; Pulse Ox 97% on R/A; kj2 10:15 Body Mass Index 36.84 (88.45 kg, 154.94 cm) 10:15 Pain Scale: Adult ss ED Course: 09:43 Patient arrived in ED. ra3 09:44 Greg Veras MD is Attending Physician. trevon 10:02 XRAY Chest (1 view) In Process Unspecified. EDMS 10:15 Arm band placed on right wrist. EKG completed in triage. Results shown to MD. ss 10:15 Patient has correct armband on for positive identification. Bed in low position. Call kj2 light in reach. Side rails up X2. Adult w/ patient. Provided Education on: call light. Client placed on continuous cardiac and pulse oximetry monitoring. NIBP monitoring applied. clinical research monitor on. Pulse ox on. 10:20 Triage completed. ss 11:03 Kalie Arana, RITO is Primary Nurse. kj2 11:39 Erich Valdovinos is Hospitalizing Provider. trevon 12:53 Urinalysis w/ reflexes Sent. kj2 Administered Medications: 09:48 CANCELLED (Duplicate Order): ns 0.9% 500 ml 500 ml IV at 100 ml/hr once; to be given as trevon a bolus over 30 minutes 11:46 Not Given (Patient Refused): [id number] mg IVP once; dilute with 10 mL 0.9% NaCl; kj2 give over 2 minutes 11:46 Drug: Enoxaparin Sub-Q 1 mg/kg Sub-Q once Route: Sub-Q; Site: abdomen; kj2 11:47 Not Given (blood pressure 97/62, pulse 488): [id number] mg PO once kj2 11:48 Not Given (Patient Refused; patient's daughter gave 1 prior to arrival, refusedd): kj2 aspirinchewable tablet 81 mg PO once 11:48 Drug: Magnesium Sulfate IVPB 2 grams IVPB once over 2 hrs Route: IVPB; Infused Over: 2 kj2 hrs; Site: right antecubital; 11:49 Drug: NS 0.9% IV 500 ml 500 ml IV at 100 ml/hr once Volume: 500 ml; Route: IV; Rate: kj2 100 ml/hr; Site: right antecubital; 11:54 Not Given (Patient Refused): ondansetron 4 mg IVP once; over 2 minutes kj2 12:13 Not Given (Duplicate Order): digoxin0.5 mg IVP once trevon Medication: 12:19 VIS not applicable for this client. kj2 Outcome: 11:43 Decision to Hospitalize by Provider. trevon 16:59 Patient left the ED. ll1 Signatures: Dispatcher [employer] EDCA Greg Veras MD MD cha Blanchard, Shelby, RN RN ss Galilea Lunsford RN RN ll1 Radha Lam ra3 Kalie Arana RN RN kj2 Corrections: (The following items were deleted from the chart) 09:57 09:56 Reassessment: called pt to triage. Unable to locate patient. Called XRAY. Pt in XRAY at this time and states they will bring pt back to room 19 as requested by triage nurse. ss
--- NOTE | 2024-04-20 11:44 | EDPHYS ---
Physician Documentation [facility] Name: Bernadine Aceves Age: 83 yrs Sex: Female : 1940 Arrival Date: 04/20/2024 Time: 09:41 Bed 19 Private MD: ED Physician Greg Veras HPI: 04/20 10:28 This 83 yrs old Pax Female presents to ER via Ambulatory with complaints of Chest trevon Pain, Nausea. 10:28 The patient or guardian reports chest pain that is located primarily in the substernal trevon area. Onset: 1 day(s) ago. The pain does not radiate. Associated signs and symptoms: Pertinent positives: shortness of breath. The chest pain is described as a heaviness. Duration: The patient or guardian reports a single episode, that is still ongoing. Modifying factors: The symptoms are alleviated by. Severity of pain: At its worst the pain was moderate in the emergency department the pain is unchanged. The patient has not experienced similar symptoms in the past. Historical: - Allergies: 10:20 No Known Allergies; ss - PMHx: 10:20 Hypertensive disorder; high cholesterol; ss - Immunization history:: Adult Immunizations up to date. - Infectious Disease History:: Denies. - Social history:: Smoking status: Patient denies any tobacco usage or history of. - Family history:: not pertinent. ROS: 10:28 Constitutional: Negative for fever, chills, and weight loss, Eyes: Negative for injury, trevon pain, redness, and discharge, ENT: Negative for injury, pain, and discharge, Neck: Negative for injury, pain, and swelling, Respiratory: Negative for shortness of breath, cough, wheezing, and pleuritic chest pain, Abdomen/GI: Negative for abdominal pain, nausea, vomiting, diarrhea, and constipation, Back: Negative for injury and pain, : Negative for injury, bleeding, discharge, and swelling, MS/Extremity: Negative for injury and deformity, Skin: Negative for injury, rash, and discoloration, Neuro: Negative for headache, weakness, numbness, tingling, and seizure, Psych: Negative for depression, anxiety, suicide ideation, homicidal ideation, and hallucinations, Allergy/Immunology: Negative for hives, rash, and allergies, Endocrine: Negative for neck swelling, polydipsia, polyuria, polyphagia, and marked weight changes, Hematologic/Lymphatic: Negative for swollen nodes, abnormal bleeding, and unusual bruising, 10:28 Cardiovascular: Positive for chest pain, palpitations, Exam: 10:28 Constitutional: This is a well developed, well nourished patient who is awake, alert, trevon and in no acute distress. Head/Face: Normocephalic, atraumatic. Eyes: Pupils equal round and reactive to light, extra-ocular motions intact. Lids and lashes normal. Conjunctiva and sclera are non-icteric and not injected. Cornea within normal limits. Periorbital areas with no swelling, redness, or edema. ENT: Nares patent. No nasal discharge, no septal abnormalities noted. Tympanic membranes are normal and external auditory canals are clear. Oropharynx with no redness, swelling, or masses, exudates, or evidence of obstruction, uvula midline. Mucous membranes moist. Neck: Trachea midline, no thyromegaly or masses palpated, and no cervical lymphadenopathy. Supple, full range of motion without nuchal rigidity, or vertebral point tenderness. No Meningismus. Chest/axilla: Normal chest wall appearance and motion. Nontender with no deformity. No lesions are appreciated. Respiratory: Lungs have equal breath sounds bilaterally, clear to auscultation and percussion. No rales, rhonchi or wheezes noted. No increased work of breathing, no retractions or nasal flaring. Abdomen/GI: Soft, non-tender, with normal bowel sounds. No distension or tympany. No guarding or rebound. No evidence of tenderness throughout. Back: No spinal tenderness. No costovertebral tenderness. Full range of motion. Female : Normal external genitalia. Skin: Warm, dry with normal turgor. Normal color with no rashes, no lesions, and no evidence of cellulitis. MS/ Extremity: Pulses equal, no cyanosis. Neurovascular intact. Full, normal range of motion., bilateral aka Neuro: Awake and alert, GCS 15, oriented to person, place, time, and situation. Cranial nerves II-XII grossly intact. Motor strength 5/5 in all extremities. Sensory grossly intact. Cerebellar exam normal. Normal gait. Psych: Awake, alert, with orientation to person, place and time. Behavior, mood, and affect are within normal limits. 10:28 Cardiovascular: Rate: tachycardic, actual rate is 120 bpm, Rhythm: irregularly irregular, Pulses: Pulses are 4+ in bilateral radial, brachial, femoral, popliteal, posterior tibial and and dorsalis pedis arteries.. Heart sounds: normal, JVD: is not appreciated, 10:28 ECG was reviewed by the Attending Physician. 12:13 ECG was reviewed by the Attending Physician. [facility] Vital Signs: 10:15 BP 105 / 79; Pulse 120; Temp 97.8; Pulse Ox 98% on R/A; Weight 88.45 kg; Height 5 ft. 1 ss in. ; Pain 8/10; 10:15 Resp 16; ss 11:40 BP 97 / 62; Pulse 48; Resp 18; Temp 97.9; Pulse Ox 98% on R/A; kj2 12:20 BP 128 / 67; Pulse 46; Resp 18; Pulse Ox 97% on R/A; kj2 13:24 BP 131 / 63; Pulse 51; Resp 20; Pulse Ox 97% on R/A; kj2 10:15 Body Mass Index 36.84 (88.45 kg, 154.94 cm) ss 10:15 Pain Scale: Adult ss MDM: 09:44 Medical Screening Exam initiated trevon 09:56 Medical Screening Exam initiated trevon 10:35 Differential diagnosis: abnormal EKG, acute myocardial infarction, acute pericarditis, trevon anxiety, coronary artery disease chest wall pain, congestive heart failure costochondritis, esophagitis, pancreatitis, peptic ulcer disease, stable angina, thoracic aortic disection, unstable angina. HEART Score: History: Moderately Suspicious (1), ECG: Non specific repolarization disturbance / LBTB / PM (1), Age: > or = 65 years (2), Risk Factors: > or = 3 Risk factors for atherosclerotic disease (2), [Hypercholesterolemia] [Hypertension] [+ Family HX] [Obesity] Troponin: < or = 1 x Normal Limit (0). The patient was given aspirin in the Emergency Department. YULIYA Risk Score: 1 - patient's age is greater or equal to 65 years, 1 - Three or more CAD risk factors, [Family Hx], [HTN], [Elevated Cholesterol], 1 - Recent [<24hrs] Severe Angina, 1 - ST deviation >0.5mm, TOTAL SCORE = 4. Data reviewed: vital signs, nurses notes, lab test result(s), EKG, radiologic studies, plain films. Consideration of Admission/Observation Patient was admitted/placed on observation. Escalation of care including admission/observation considered. I considered the following discharge prescriptions or medication management in the emergency department Medications were administered in the Emergency Department. See 09:47 Order name: Basic Metabolic Panel; Complete Time: 11:30 [facility] 04/20 09:47 Order name: CBC with Diff; Complete Time: 11: [facility] 04/20 09:47 Order name: LFT's; Complete Time: 11: [facility] 04/20 09:47 Order name: Magnesium; Complete Time: 11: [facility] 04/20 09:47 Order name: NT PRO-BNP; Complete Time: 11: [facility] 04/20 09:47 Order name: PT-INR; Complete Time: 11: [facility] 04/20 09:47 Order name: Troponin HS; Complete Time: 11: [facility] 04/20 09:47 Order name: Lipase; Complete Time: 11: [facility] 04/20 09:47 Order name: Urinalysis w/ reflexes [facility] 04/20 10:16 Order name: TSH [facility] 04/20 13:15 Order name: T4 Free [facility] 04/20 13:15 Order name: Thyroid Stimulating Hormone [facility] 04/20 13:15 Order name: Urinalysis w/ reflexes [facility] 04/20 13:15 Order name: Basic Metabolic Panel [facility] 04/20 13:15 Order name: Basic Metabolic Panel [facility] 04/20 13:15 Order name: Basic Metabolic Panel [facility] 04/20 13:15 Order name: Basic Metabolic Panel [facility] 04/20 13:15 Order name: CBC with Automated Diff [facility] 04/20 13:15 Order name: CBC with Automated Diff [facility] 04/20 13:15 Order name: CBC with Automated Diff [facility] 04/20 13:15 Order name: CBC with Automated Diff [facility] 04/20 13:15 Order name: Hemoglobin A1c [facility] 04/20 13:15 Order name: Hemoglobin A1c [facility] 04/20 13:15 Order name: Lipid Profile [facility] 04/20 13:15 Order name: Lipid Profile [facility] 04/20 13:15 Order name: Magnesium [facility] 04/20 13:15 Order name: Magnesium [facility] 04/20 13:15 Order name: Magnesium [facility] 04/20 13:15 Order name: Magnesium [facility] 04/20 13:15 Order name: Phosphorus EDMS 04/20 13:15 Order name: Phosphorus EDMS 04/20 13:15 Order name: Phosphorus EDMS 04/20 13:15 Order name: Phosphorus EDMS 04/20 13:15 Order name: Troponin High Sensitivity EDMS 04/20 13:15 Order name: Troponin High Sensitivity EDMS 04/20 13:15 Order name: Troponin High Sensitivity EDMS 04/20 09:47 Order name: XRAY Chest (1 view); Complete Time: 11:30 [facility] 04/20 12:35 Order name: Echo w/ Doppler [facility] 04/20 12:13 Order name: EKG; Complete Time: 12:14 [facility] 04/20 09:47 Order name: Cardiac monitoring; Complete Time: 11:54 [facility] 04/20 09:47 Order name: EKG - Nurse/Tech; Complete Time: 11:54 [facility] 04/20 09:47 Order name: IV Saline Lock; Complete Time: 11:54 [facility] 04/20 09:47 Order name: Labs collected and sent; Complete Time: 11:55 [facility] 04/20 09:47 Order name: O2 Per Protocol; Complete Time: 11:55 [facility] 04/20 09:47 Order name: O2 Sat Monitoring; Complete Time: 11:55 [facility] 04/20 12:13 Order name: EKG - Nurse/Tech; Complete Time: 12:14 [facility] EC:28 Rate is 135 beats/min. Rhythm is irregularly irregular. QRS Elma is Normal. MO interval trevon is normal. QRS interval is normal. QT interval is normal. No Q waves. T waves are Normal. No ST changes noted. Clinical impression: Atrial Fibrillation. Interpreted by me. Reviewed by me. 12:13 Rate is 57 beats/min. Rhythm is regular. QRS Elma is Normal. MO interval is normal. QRS trevon interval is normal. QT interval is normal. No Q waves. T waves are Normal. No ST changes noted. Clinical impression: Sinus bradycardia. Interpreted by me. Reviewed by me. Administered Medications: 09:48 CANCELLED (Duplicate Order): ns 0.9% 500 ml 500 ml IV at 100 ml/hr once; to be given as trevon a bolus over 30 minutes 11:46 Not Given (Patient Refused): [id number] mg IVP once; dilute with 10 mL 0.9% NaCl; kj2 give over 2 minutes 11:46 Drug: Enoxaparin Sub-Q 1 mg/kg Sub-Q once Route: Sub-Q; Site: abdomen; kj2 11:47 Not Given (blood pressure 97/62, pulse 488): [id number] mg PO once kj2 11:48 Not Given (Patient Refused; patient's daughter gave 1 prior to arrival, refusedd): kj2 aspirinchewable tablet 81 mg PO once 11:48 Drug: Magnesium Sulfate IVPB 2 grams IVPB once over 2 hrs Route: IVPB; Infused Over: 2 kj2 hrs; Site: right antecubital; 11:49 Drug: NS 0.9% IV 500 ml 500 ml IV at 100 ml/hr once Volume: 500 ml; Route: IV; Rate: kj2 100 ml/hr; Site: right antecubital; 11:54 Not Given (Patient Refused): ondansetron 4 mg IVP once; over 2 minutes kj2 12:13 Not Given (Duplicate Order): digoxin0.5 mg IVP once trevon Disposition Summary: 04/20/24 11:43 Hospitalization Ordered Notes: Hospitalization Status: Inpatient Admission trevon Provider: Erich Valdovinos cha Location: Telemetry/MedSurg (Inpatient) trevon Condition: Fair trevon Problem: new trevon Symptoms: have improved trevon Bed/Room Type: Standard trevon Room Assignment: 423(04/20/24 15:14) bd Diagnosis - Chest pain, unspecified trevon - Persistent atrial fibrillation - with RVR trevon - Abnormal levels of other serum enzymes - TROPONIN ELEVATED trevon - Non ST elevation [place] trevon Forms: - Medication Reconciliation Form trevon - SBAR form trevon - Leadership Thank You Letter trevon Signatures: Dispatcher [employer] EDID Melita Musa Corey, MD MD cha Blanchard, Shelby, RN RN Kalie Arana RN RN kj2 Corrections: (The following items were deleted from the chart) 09:48 09:47 NS 0.9% IV 500 ml 500 ml IV at 100 ml/hr once; to be given as a bolus over 30 trevon minutes ordered. trevon 09:48 09:48 BASIC METABOLIC PANEL+C.LAB.BRZ ordered. EDMS EDMS 09:48 09:48 CBC+H.LAB.BRZ ordered. EDMS EDMS 09:48 09:48 HEPATIC FUNCTION+C.LAB.BRZ ordered. EDMS EDMS 09:48 09:48 MAGNESIUM+C.LAB.BRZ ordered. EDMS EDMS 09:48 09:48 PROBNP+C.LAB.BRZ ordered. EDMS EDMS 09:48 09:48 PROTIME (+INR)+COAG.LAB.BRZ ordered. EDMS EDMS 09:48 09:48 Troponin High Sensitivity+C.LAB.BRZ ordered. EDMS EDMS 09:48 09:48 LIPASE+C.LAB.BRZ ordered. EDMS EDMS :48 09:48 Urinalysis+U.LAB.BRZ ordered. EDMS EDMS 09:48 09:48 Chest Single View+RAD.RAD.BRZ ordered. EDMS EDMS 10:16 10:16 THYROID STIMULAT HORMONE+C.LAB.BRZ ordered. EDMS EDMS 15:14 11:43 trevon bd
--- NOTE | 2024-04-20 12:11 | P.HP ---
Certification for Inpatient Patient admitted to: Observation With expected LOS: <2 Midnights Patient will require the following post-hospital care: None Practitioner: I am a practitioner with admitting privileges, knowledge of patient current condition, hospital course, and medical plan of care. Services: Services provided to patient in accordance with Admission requirements found in Title 42 Section 412.3 of the Code of Federal Regulations <Penny Cooper - Last Filed: 04/20/24 18:43> Patient History Date of Service: 04/20/24 Reason for admission: Chest pain , Afib with RVR History of Present Illness: Bernadine Aceves is an 83 year old with pmhx HTN, hypercholesterolemia who presented to the ED with complaint of sternal chest pain, diarrhea pheresis, pale. Daughter at the bedside reports she is never seen her like this before. She reports seeing a heart doctor but is unaware of the reasoning. Significant Labs serum glucose 181, troponin 122. Initial EKG showing A-fib with ST depression in lateral leads heart rate 135, repeat EKG showing normal sinus rhythm with no ST changes. Chest x-ray reports "Mild interstitial pulmonary edema suspected. The heart is mildly to moderately enlarged. Aortic atherosclerosis. No displaced fractures identified." Bernadine will be admitted to hospitalist service for further evaluation and treatment, Dr. Joe consulted. - Past Medical/Surgical History -: Hypertension -: Hypercholesterolemia Past Surgical History: Reviewed- Non-Contributory - Family History Father -: Heart disease Mother -: Heart disease - Social History Smoking Status: Never smoker Alcohol use: No CD- Drugs: No <Penny Cooper - Last Filed: 04/20/24 18:43> Date of Service: 04/20/24 <conner mays - Last Filed: 04/20/24 19:15> Allergies No Known Allergies Allergy (Unverified 04/20/24 13:30) Home Medications: Losartan Potassium 100 mg PO DAILY 04/20/24 atenoloL [Tenormin] 12.5 mg PO DAILY 04/20/24 Review of Systems Other: Per HPI <Penny Cooper - Last Filed: 04/20/24 18:43> Physical Examination - Physical Exam General: Alert, In no apparent distress, Oriented x3 HEENT: Atraumatic, Normocephalic, PERRLA Neck: Supple, 2+ carotid pulse no bruit Respiratory: Clear to auscultation bilaterally, Normal air movement Cardiovascular: Normal pulses, Regular rate/rhythm, Normal S1 S2 Capillary refill: <2 Seconds Gastrointestinal: Normal bowel sounds, Soft and benign Musculoskeletal: No clubbing Integumentary: No rashes Neurological: Normal speech, Normal tone - Studies Laboratory Data (last 24 hrs) 04/20/24 04/20/24 04/20/24 10:24 10:24 10:24 WBC 7.10 Hgb 11.9 L Hct 35.3 L Plt Count 263 PT 11.6 INR 1.11 Sodium 136 Potassium 3.7 BUN 25 H Creatinine 0.88 Glucose 181 H Magnesium 1.8 Total Bilirubin 0.5 AST 12 L ALT 15 Alkaline Phosphatase 70 Lipase 34 <Penny Cooper - Last Filed: 04/20/24 18:43> - Studies Laboratory Data (last 24 hrs) 04/20/24 04/20/24 04/20/24 10:24 10:24 10:24 WBC 7.10 Hgb 11.9 L Hct 35.3 L Plt Count 263 PT 11.6 INR 1.11 Sodium 136 Potassium 3.7 BUN 25 H Creatinine 0.88 Glucose 181 H Magnesium 1.8 Total Bilirubin 0.5 AST 12 L ALT 15 Alkaline Phosphatase 70 Lipase 34 <conner mays - Last Filed: 04/20/24 19:15> Assessment and Plan - Plan Assessment and plan A-fib with RVR NSTEMI -Consult cardiology -Serial troponin 122/2305 -Aspirin/Lipitor -Repeat EKG -Echo -Pain control -Heparin drip -Continuous telemetry Hypertension Hypercholesterolemia -Continue home medications when appropriate DVT PPx heparin drip Full code LOS 24 hour OBS Discharge Plan: Home Plan to discharge in: 24 Hours - Advance Directives Does patient have a Living Will: No Does patient have a Durable POA for Healthcare: No <Penny Cooper - Last Filed: 04/20/24 18:43> - Plan A-fib with RVR-converted to sinus rhythm NSTEMI Bradycardia. Plan: Heparin drip Aspirin Statin Not on beta-mehran due to significant bradycardia. Cardiology consult Echocardiogram. <conner mays - Last Filed: 04/20/24 19:15>
[2024-04-20 13:00] LABS: Specific Gravity 1.025 (1.005-1.030); Sqamous Epithelial <5 /HPF (None Seen); Urine Bacteria <20 /HPF (<20); Urine Bilirubin NEGATIVE (Negative); Urine Blood Negative (Negative); Urine Clarity Extremely Turbid (Clear); Urine Color Yellow (Yellow); Urine Culture Reflex Order NOT NEEDED; Urine Glucose NEGATIVE (Negative); Urine Ketones NEGATIVE (Negative); Urine Microscopic Reflex YN ORDER UMIC; Urine Mucus 1+ /HPF (None Seen); Urine Nitrite NEGATIVE (Negative); Urine Protein 1+ (Negative); Urine RBC None Seen /HPF (None Seen); Urine Urobilinogen Normal (Normal); Urine WBC <5 /HPF (<5)
[2024-04-20] MEDS ORDERED: ACETAMINOPHEN 325 MG TABLET PO PRN (13:07)
[2024-04-20 15:28] VITALS: BMI 36.6
[2024-04-20] MEDS ORDERED: PNEUMOCOCCAL VACCINE 0.5 ML IMVAC ONE (18:00)
[2024-04-20] MEDS ORDERED: HYDRALAZINE HCL 20 MG/ML VIAL IV PRN (18:50)
[2024-04-20 20:26] LABS: PT Prothrombin Time 11.6 SECONDS (9.4-12.5); PTT, Activated Partial Thromb 35.2 SECONDS (24.3-36.9); Protime INR 1.11
[2024-04-20] MEDS ORDERED: ENOXAPARIN 100 MG/ML SYR SQ SCH (21:00)
[2024-04-20] MEDS: HEPARIN/D5W 25,000 UNIT/500 ML BAG IV SCH (22:10)
[2024-04-20] MEDS: ATORVASTATIN 40 MG TAB PO SCH (22:10)
[2024-04-21 06:25] LABS: Absolute Basophils 0.1 K/uL (0-0.5); Absolute Eosinophils 0.2 K/uL (0-0.5); Absolute Lymphocytes (CBC) 2.1 K/uL (0.7-4.9); Absolute Monocytes 0.5 K/uL (0.1-1.3); Absolute Neutrophil 3.5 K/uL (1.8-8.0); Eosinophils % 3.3 % (0-4.4); Hematocrit 29.8 % (36.0-45.0); Hemoglobin 10.3 g/dL (12.0-15.0); Lymphocytes % 33.7 % (15.3-44.8); MCH 30.5 pg (27.0-35.0); MCHC 34.6 g/dL (32.0-36.0); MCV 88.1 fL (80-100); MPV 8.3 fL (7.6-11.3); Monocytes % 7.4 % (3.3-12.3); Neutrophils % 54.6 % (41.7-73.7); Platelets 195 thou/uL (152-406); RBC Red Blood Cell Count 3.39 M/uL (3.86-4.86); Red Cell Distribution Width 13.1 % (12.1-15.2)
[2024-04-21 06:44] LABS: Magnesium 2.4 mg/dL (1.6-2.4); Phosphorus 2.4 mg/dL (2.5-4.9)
[2024-04-21] MEDS: ASPIRIN EC 81 MG TAB PO SCH (09:25)
[2024-04-21] MEDS ORDERED: NA CHLORIDE 0.9% 500 ML ONE (09:55)
[2024-04-21] MEDS ORDERED: HEPARIN 10,000 UNIT/10 ML VIAL IV ONE (09:57)
[2024-04-21] MEDS ORDERED: LIDOCAINE 1% 20 ML MDV ONE (09:57)
[2024-04-21] MEDS ORDERED: HEPA 1000U/500MLS 2,000 UNIT/1,000 ML BAG IV ONE (09:57)
[2024-04-21] MEDS ORDERED: ATROPINE SULF 1 MG/10 ML SYR IV ONE (09:58)
[2024-04-21] MEDS ORDERED: MIDAZOLAM HCL 2 MG/2 ML INJ ONE (09:58)
[2024-04-21] MEDS ORDERED: CLOPIDOGREL 75 MG TABLET ONE (09:58)
[2024-04-21] MEDS ORDERED: HEPARIN 5000 UNIT/ML 1 ML VIAL ONE (09:58)
[2024-04-21] MEDS ORDERED: FENTANYL CITR 100 MCG/2 ML ONE (09:59)
[2024-04-21] MEDS ORDERED: TICAGRELOR 90 MG TABLET PO ONE (09:59)
[2024-04-21] MEDS ORDERED: ASPIRIN 325 MG TAB ONE (09:59)
--- NOTE | 2024-04-21 10:31 | P.CNS ---
Date of Consult: 04/21/24 Chief Complaint: Chest pain , Afib with RVR History of Present Illness: Patient with PMH of HTN, presented with new onset chest pain yesterday, pressure in nature associated with diapharesis, left sided, radiating to her arm, associated with palpitations, denies any other cardiac symptoms. Allergies No Known Allergies Allergy (Unverified 04/20/24 13:30) Home medications list reviewed: Yes Home Medications: Losartan Potassium 100 mg PO DAILY 04/20/24 atenoloL [Tenormin] 12.5 mg PO DAILY 04/20/24 - Past Medical/Surgical History Diabetic: No -: Hypertension -: Hypercholesterolemia -: Gall bladder surgery -: cataract Sx -: Hand Sx - Family History Father Medical History: Heart disease Mother Medical History: Heart disease - Social History Alcohol use: No CD- Drugs: No Caffeine use: Yes Place of Residence: Home Review of Systems 10-point ROS is otherwise unremarkable Physical Examination Temp Pulse Resp BP Pulse Ox 97.8 F 63 20 134/72 97 04/21/24 08:00 04/21/24 08:00 04/21/24 08:00 04/21/24 08:00 04/21/24 08:00 General: Alert, In no apparent distress HEENT: Atraumatic, PERRLA, Mucous membr. moist/pink, EOMI, Sclerae nonicteric Neck: Supple, 2+ carotid pulse no bruit, No LAD, Without JVD or thyroid abnormality Respiratory: Clear to auscultation bilaterally, Normal air movement Cardiovascular: Regular rate/rhythm, Normal S1 S2 Gastrointestinal: Normal bowel sounds, No tenderness Musculoskeletal: No tenderness Integumentary: No rashes Neurological: Normal gait, Normal speech, Normal tone, Normal affect Lymphatics: No axilla or inguinal lymphadenopathy Laboratory Data (last 24 hrs) 04/20/24 04/20/24 04/20/24 10:24 10:24 10:24 WBC 7.10 Hgb 11.9 L Hct 35.3 L Plt Count 263 PT 11.6 INR 1.11 Sodium 136 Potassium 3.7 BUN 25 H Creatinine 0.88 Glucose 181 H Magnesium 1.8 Total Bilirubin 0.5 AST 12 L ALT 15 Alkaline Phosphatase 70 Lipase 34 - Problems (1) NSTEMI (non-ST elevated myocardial infarction) Current Visit: Yes Status: Acute Plan: EKG with ST depression inferolateral leads, troponin peaked and trending down. NPO for coronary angiogram Heparin drip ASA 81 mg daily Lipitor 40 mg daily get echo (2) Atrial fibrillation Current Visit: Yes Status: Acute Plan: converted to sinus rhythm with IV metoprolol start Lopressor 25 g po bid will need NOAC after coronary angiogram (3) HTN (hypertension) Current Visit: Yes Status: Acute Plan: patient is on losartan and atenolol at home.
[2024-04-21] MEDS: HYDRALAZINE HCL 20 MG/ML VIAL ONE (12:29)
[2024-04-21] MEDS ORDERED: ONDANSETRON 4 MG/2 ML VIAL IV PRN (13:47)
--- NOTE | 2024-04-21 15:24 | P.PN ---
Date of Service: 04/21/24 Subjective: S/P coronary angiogram Without complaints at this time ROS: 10 point ROS as noted above, otherwise negative Physical exam GEN: Alert, oriented, NAD HEENT: Normal conjunctiva, sclera anicteric CV: Regular rate and rhythm, no edema Pulm: Nonlabored respirations on room air ABD: Soft, nontender, nondistended MSK: No joint tenderness Integumentary: No rashes Neuro: Normal speech, normal affect Vitals reviewed Assessment and plan Severe multivessel CAD NSTEMI A-fib with RVR NSTEMI -Coronary angiogram done on 04/21 shows multivessel CAD -Cardiology recommends CABG evaluation -Transfer initiated to [facility] for evaluation for possible CABG -Continue heparin drip -Was bradycardic with beta-blockers, continue to monitor on telemetry Hypertension Hypercholesterolemia -Continue home medications when appropriate DVT PPx heparin drip Full code 1 to 2 days Transferred to [facility] Plan to discharge in: 24 Hours Time Spent Managing Pts Care (In Minutes): 35
--- NOTE | 2024-04-21 15:47 | P.DS ---
Admission Date: 04/21/24 Discharge Date: 04/21/24 Reason for Admission: Chest pain , Afib with RVR Brief History of Present Illness: Bernadine Aceves is an 83 year old with pmhx HTN, hypercholesterolemia who presented to the ED with complaint of sternal chest pain, diarrhea pheresis, pale. Daughter at the bedside reports she is never seen her like this before. She reports seeing a heart doctor but is unaware of the reasoning. Significant Labs serum glucose 181, troponin 122. Initial EKG showing A-fib with ST depression in lateral leads heart rate 135, repeat EKG showing normal sinus rhythm with no ST changes. Chest x-ray reports "Mild interstitial pulmonary edema suspected. The heart is mildly to moderately enlarged. Aortic atherosclerosis. No displaced fractures identified." Bernadine will be admitted to hospitalist service for further evaluation and treatment, Dr. Joe consulted. Hospital Course: Assessment Severe multivessel CAD NSTEMI A-fib with RVR NSTEMI Hypertension Hypercholesterolemia Patient was admitted for chest pain, new onset A-fib. She underwent a coronary angiogram which showed severe multivessel CAD. It was recommended by cardiology that she is transferred to tertiary center to undergo CABG evaluation. She has been accepted to [facility] for further evaluation for possible CABG. Vital Signs/Physical Exam: Temp Pulse Resp BP Pulse Ox 97.7 F 62 16 147/78 H 98 04/21/24 13:40 04/21/24 13:40 04/21/24 13:40 04/21/24 13:40 04/21/24 13:40 General: Alert, In no apparent distress, Oriented x3 HEENT: Atraumatic, PERRLA Neck: Supple, JVD not distended Respiratory: Clear to auscultation bilaterally, Normal air movement Cardiovascular: Regular rate/rhythm, Normal S1 S2 Gastrointestinal: Normal bowel sounds, No tenderness Musculoskeletal: No tenderness Integumentary: No rashes Neurological: Normal speech, Normal tone, Normal affect Laboratory Data at Discharge: WBC 6.40 thou/uL (4.3-10.9) 04/21/24 06:13 Hgb 10.3 g/dL (12.0-15.0) L D 04/21/24 06:13 Hct 29.8 % (36.0-45.0) L 04/21/24 06:13 Plt Count 195 thou/uL (152-406) 04/21/24 06:13 PT 11.6 SECONDS (9.4-12.5) 04/20/24 19:47 INR 1.11 04/20/24 19:47 APTT Cancelled 04/21/24 12:00 Sodium 140 mEq/L (136-145) 04/21/24 06:13 Potassium 4.0 mEq/L (3.5-5.1) 04/21/24 06:13 BUN 20 mg/dL (7-18) H 04/21/24 06:13 Creatinine 0.70 mg/dL (0.55-1.02) 04/21/24 06:13 Glucose 100 mg/dL (74-106) 04/21/24 06:13 Phosphorus 2.4 mg/dL (2.5-4.9) L 04/21/24 06:13 Magnesium 2.4 mg/dL (1.6-2.4) 04/21/24 06:13 Total Bilirubin 0.5 mg/dL (0.2-1.0) 04/20/24 10:24 AST 12 U/L (15-37) L 04/20/24 10:24 ALT 15 U/L (13-56) 04/20/24 10:24 Alkaline Phosphatase 70 U/L (45-117) 04/20/24 10:24 Triglycerides 83 mg/dL (<150) 04/21/24 06:13 Cholesterol 156 mg/dL (<200) 04/21/24 06:13 HDL Cholesterol 40 mg/dL (40-60) 04/21/24 06:13 Cholesterol/HDL Ratio 3.90 04/21/24 06:13 Lipase 34 U/L (13-75) 04/20/24 10:24 Home Medications: Losartan Potassium 100 mg PO DAILY 04/20/24 atenoloL [Tenormin] 12.5 mg PO DAILY 04/20/24 Physician Discharge Instructions: Patient was admitted for chest pain, new onset A-fib. She underwent a coronary angiogram which showed severe multivessel CAD. It was recommended by cardiology that she is transferred to tertiary center to undergo CABG evaluation. She has been accepted to [facility] for further evaluation for possible CABG. Followup: Homero Pérez MD [Primary Care Provider] - Time spent managing pt's care (in minutes): 36
[2024-04-21 16:30] VITALS: BP 130/65; TEMP 98.8
[2024-04-21 17:08] VITALS: O2SAT 91
--- NOTE | 2024-04-22 01:45 | OP ---
Date of Procedure: 04/21/2024 Surgeon: Erick Joe Procedures Performed: Selective coronary angiogram and left heart catheterization. Indication For Procedure: Non-ST elevation WI. Complications: None. Estimated Blood Loss: Less than 50 cc. Access: Right ulnar, closed by TR band. Sedation Time: 20 minutes with 1 of Versed and 50 of fentanyl. Description Of Procedure: After risks, benefits, and alternatives were explained to the patient, the patient agreed to proceed with procedure and signed informed consent. The patient was brought back to the labor relations specialist, prepped and draped in sterile fashion. Time-out was performed. Sedation was admini stered. Next, right ulnar access was obtained using an ultrasound-guided micropuncture technique. T iger 4 catheter was advanced over J-wire to the LV cavity. LVEDP was obtained. Pullback did not sivan w any gradient. Same catheter was used for selective angiogram of the left and right coronary system s. Later on, that catheter was pulled back to the aortic root, where nonselective angiogram was done of the left subclavian artery and GARCIA. Catheter was removed over a J-wire. Sheath was removed. T R band was applied. Hemostasis was achieved and the patient was moved back to recovery in stable con dition. Findings: 1.Left main, normal. 2.LAD, proximal 100% occluded with [id number] collaterals. 3.Left circ, proximal 100% occluded. 4.Ramus, large, very tortuous with proximal 70% disease, mild luminal irregularities. 5.RCA, small artery, but with proximal 70% disease and it gives collaterals to the left circ and OM1 and also to the LAD. 6.Left subclavian artery/GARCIA patent. Assessment And Plan: Significant 100% occluded LAD with significant 100% occluded left circ with rig ht-to-left collaterals from the RCA with significant proximal ramus disease and RCA disease. Plan is to transfer for inpatient CABG evaluation. GIOVANNY/CLARISSA Voice ID: [id number] Report ID: [id number]
--- NOTE | 2024-04-22 12:35 | EKG ---
Test Date: 2024-04-20 Test Time: 12:08:42 Natural Gas Inspector: ISMAEL MEASUREMENT RESULTS: Intervals: Rate: 57 CT: 196 QRSD: 88 QT: 478 QTc: 465 Artemus: P: 83 CT: 196 QRS: 242 T: 47 INTERPRETIVE STATEMENTS: Sinus bradycardia Right superior axis deviation Septal infarct, age undetermined Abnormal ECG No previous ECG available for comparison Electronically Signed On 04-22-24 12:31:36 PHOTOGRAPHER AERIAL by Erick Joe
--- NOTE | 2024-04-28 12:46 | EKG ---
Test Date: 2024-04-20 Test Time: 18:46:19 Cq Developer: LINDA MEASUREMENT RESULTS: Intervals: Rate: 59 MS: 194 QRSD: 90 QT: 450 QTc: 445 Ames: P: 20 MS: 194 QRS: -50 T: 53 INTERPRETIVE STATEMENTS: Sinus bradycardia with sinus arrhythmia Left axis deviation Septal infarct, age undetermined Abnormal ECG Compared to ECG 04/20/2024 12:08:42 Left-axis deviation now present Right superior axis no longer present Myocardial infarct finding still present Electronically Signed On 04-28-24 12:26:02 AMMUNITION ASSEMBLY LABORER by Erick Joe
--- NOTE | 2024-04-28 12:47 | EKG ---
Test Date: 2024-04-20 Test Time: 10:07:47 Commercial Service Technician: VERN MEASUREMENT RESULTS: Intervals: Rate: 135 OK: QRSD: 98 QT: 290 QTc: 435 [place]: P: OK: QRS: 202 T: 164 INTERPRETIVE STATEMENTS: Atrial fibrillation Septal infarct, age undetermined Marked ST abnormality, possible inferolateral subendocardial injury Abnormal ECG No previous ECG available for comparison Electronically Signed On 04-28-24 12:27:03 AIRCRAFT MANAGER by Erick Joe
== END 2024-04-21 17:55 | disposition short-term general hospital (02) | DRG 282 ==
LOC: ER 09:41 → ERHOLD 13:07 → 4TH 16:01 → OBSVTOIN 04-21 15:21
PROVIDERS: ADMIT Internal Medicine; ATTEND Hospitalist
PROC: 4A023N7 Measurement of Cardiac Sampling and Pressure, Left Heart, Percutaneous Approach (ICD-10-PCS; principal; 2024-04-21)
PROC: B2111ZZ Fluoroscopy of Multiple Coronary Arteries using Low Osmolar Contrast (ICD-10-PCS; 2024-04-21)
DX: I48.19 Other persistent atrial fibrillation (principal); I21.4 Non-ST elevation (NSTEMI) myocardial infarction; I10 Essential (primary) hypertension; E78.00 Pure hypercholesterolemia, unspecified; I25.10 Atherosclerotic heart disease of native coronary artery without angina pectoris; R00.1 Bradycardia, unspecified; Z79.899 Other long term (current) drug therapy
CPT/HCPCS: 36415; 71045; 76937; 80048; 80061; 80076; 81001; 83036; 83690; 83735; 83880; 84100; 84439; 84443; 84484; 85025; 85610; 85730; 93005; 93458; 96372; 96374; 99152; 99153; 99285; C1893; G0378; J0360; J0461; J1644; J1650; J2003; J2250; J2405; J3010; J3475; J7040; Q9966